=== PATIENT | female | born 1985 | race Caucasian/White ===

== ENCOUNTER 2023-02-27 11:52 | Emergency (ER) | payer MEDICAID ==
[~2023-02-27] VITALS: Ht 172.7 cm; Wt 90.0 kg
[2023-02-27 12:17] VITALS: TEMP 97.8
[2023-02-27 13:12] LABS: BASOPHILS # (AUTO) 0.1 X10'3 (0-0.2); EOSINOPHILS # (AUTO) 0.3 X10'3 (0-0.9); EOSINOPHILS % (AUTO) 4.5 % (0-6); HEMOGLOBIN 8.9 g/dl (12.0-16.0); LYMPHOCYTES # (AUTO) 2.7 X10'3 (1.1-4.8); LYMPHOCYTES % (AUTO) 38.5 % (21-51); MEAN CORPUSCULAR HEMOGLOBIN 23.8 PG (27.0-31.0); MEAN CORPUSCULAR HGB CONC 30.8 g/dL (33.0-36.5); MEAN CORPUSCULAR VOLUME 77.2 FL (78-98); MEAN PLATELET VOLUME 8.3 FL (7.4-10.4); MONOCYTES # (AUTO) 0.7 X10'3 (0-0.9); MONOCYTES % (AUTO) 9.9 % (2-12); NEUTROPHILS # (AUTO) 3.2 X10'3 (1.8-7.7); NEUTROPHILS % (AUTO) 46.1 % (42-75); PLATELET COUNT 384 X10'3 (140-440); RED BLOOD COUNT 3.76 X10'6 (4.20-5.60); RED CELL DISTRIBUTION WIDTH 24.7 % (11.5-14.5); WHITE BLOOD COUNT 6.9 X10'3 (4.5-11.0)
[2023-02-27 13:29] LABS: ALANINE AMINOTRANSFERASE 34 U/L (12-78); ALBUMIN 2.9 G/DL (3.4-5.0); ALBUMIN/GLOBULIN RATIO 0.7 (1.1-1.5); ALKALINE PHOSPHATASE 81 IU/L (46-116); AMYLASE 32 U/L (25-115); ANION GAP 8 (8-16); ASPARTATE AMINO TRANSFERASE 33 U/L (10-37); BILIRUBIN,TOTAL 0.2 MG/DL (0.1-1.0); BLOOD UREA NITROGEN 11 MG/DL (7-18); BUN/CREATININE RATIO 14.9 (10.0-20.0); CALCIUM 8.6 MG/DL (8.5-10.1); CHLORIDE 107 MMOL/L (99-107); CREATININE 0.74 MG/DL (0.40-0.90); GLUCOSE 96 MG/DL (70-104); POTASSIUM 3.5 MMOL/L (3.5-5.1); SODIUM 140 MMOL/L (135-145); TOTAL CARBON DIOXIDE 24.7 MMOL/L (24-32); TOTAL PROTEIN 6.9 G/DL (6.4-8.2); eCRCL 105 ML/MIN; eGFR 88 ML/MIN
[2023-02-27 13:42] LABS: LIPASE 24 U/L (16-77)
[2023-02-27 14:00] LABS: ANISOCYTOSIS 3+; MICROCYTOSIS 1+; PLATELET ESTIMATE NORMAL
[2023-02-27 14:01] LABS: HYPOCHROMASIA 1+
[2023-02-27 15:25] VITALS: BP 150/99
--- NOTE | 2023-02-27 16:05 | NUR ---
had to place the pt in 17 cause she was having inappropriate conversation with other pt's in the lobby
--- NOTE | 2023-02-27 16:14 | NUR ---
PT CONSISTENTLY ASKING FOR SANDWICH'S, EXPLAINED TO PT SHES HERE FOR ABD PAIN AND A DOC HASNT SEEN HER YET.
--- NOTE | 2023-02-27 16:24 | NUR ---
PT YELLING RANDOM COMMENTS FROM ROOM. ASKED TO KEEP IT DOWN AND PT SAID "NO, FUCK YOU NURSES, I NEED MY PYSCH MEDS"
[2023-02-27] MEDS ORDERED: DICY10CA88 PO ×4 (17:02→17:14)
[2023-02-27] MEDS ORDERED: ONDA8TAB13 PO ×3 (17:02→17:14)
[2023-02-27] MEDS ORDERED: ONDA4TAB12 PO (17:05)
[2023-02-27 17:28] VITALS: PULSE 87; RESP 18; O2SAT 98
[2023-02-27 17:42] LABS: BILIRUBIN,URINE NEGATIVE (Neg); CLARITY,URINE CLOUDY (Clear); COLOR,URINE YELLOW (Yellow); GLUCOSE, URINE NEGATIVE (Neg); KETONES,URINE NEGATIVE (Neg); LEUKOCYTE ESTERASE ,URINE SMALL (Neg); NITRITES, URINE NEGATIVE (Neg); OCCULT BLOOD,URINE NEGATIVE (Neg); PROTEIN,URINE NEGATIVE (Neg); URINE HCG NEGATIVE (NEG); UROBILINOGEN,URINE 0.2 E.U/dL (0.2-1.0)
[2023-02-27 18:26] LABS: UA COLLECTION TYPE CLN CATCH MIDSTREAM
[2023-02-27 18:27] LABS: BACTERIA,URINE 3+ /HPF (Neg); RBC,URINE 0-2 /HPF (0-2); SQUAMOUS EPITHELIAL CELL,UR MODERATE /LPF (FEW); TRANSITIONAL EPI CELLS,URINE FEW /HPF; WBC CLUMPS,URINE MANY /HPF (NEGATIVE)
== END 2023-02-27 17:30 | disposition home or self-care (01) ==
LOC: ER 11:54
DX: R10.9 Unspecified abdominal pain (principal)
CPT/HCPCS: 36415; 80053; 81001; 81025; 82150; 83690; 85008; 85025; 87077; 87088; 87186; 99283; J7030; A4620

== ENCOUNTER 2023-03-01 21:16 | Inpatient (IN) | payer MEDICAID ==
[~2023-03-01] VITALS: Ht 172.7 cm; Wt 61.6 kg
[~2023-03-01 21:16] MED LIST: DICY10CA88 PO; ONDA8TAB13 PO
[2023-03-01 22:32] LABS: BASOPHILS # (AUTO) 0.1 X10'3 (0-0.2); BASOPHILS % (AUTO) 1.2 % (0-1); EOSINOPHILS # (AUTO) 0.3 X10'3 (0-0.9); EOSINOPHILS % (AUTO) 5.1 % (0-6); HEMATOCRIT 27.6 % (35.0-45.0); HEMOGLOBIN 8.5 g/dl (12.0-16.0); LYMPHOCYTES % (AUTO) 45.1 % (21-51); MEAN CORPUSCULAR HEMOGLOBIN 23.9 PG (27.0-31.0); MEAN CORPUSCULAR VOLUME 77.3 FL (78-98); MEAN PLATELET VOLUME 8.5 FL (7.4-10.4); MONOCYTES # (AUTO) 0.6 X10'3 (0-0.9); MONOCYTES % (AUTO) 9.9 % (2-12); NEUTROPHILS # (AUTO) 2.6 X10'3 (1.8-7.7); NEUTROPHILS % (AUTO) 38.7 % (42-75); PLATELET COUNT 348 X10'3 (140-440); RED BLOOD COUNT 3.57 X10'6 (4.20-5.60); RED CELL DISTRIBUTION WIDTH 24.4 % (11.5-14.5); WHITE BLOOD COUNT 6.6 X10'3 (4.5-11.0)
[2023-03-01] MEDS ORDERED: oxyCODONE/APAP 5-325mg tablet PO ONE (22:40)
[2023-03-01] MEDS ORDERED: ondansetron 4mg rapidly disintigrating tab PO ONE (22:40)
[2023-03-01 22:48] LABS: ALANINE AMINOTRANSFERASE 37 U/L (12-78); ALBUMIN 2.9 G/DL (3.4-5.0); ALBUMIN/GLOBULIN RATIO 0.8 (1.1-1.5); ALKALINE PHOSPHATASE 93 IU/L (46-116); ANION GAP 6 (8-16); ASPARTATE AMINO TRANSFERASE 27 U/L (10-37); BILIRUBIN,TOTAL 0.1 MG/DL (0.1-1.0); BLOOD UREA NITROGEN 15 MG/DL (7-18); BUN/CREATININE RATIO 17.2 (10.0-20.0); CALCIUM 8.5 MG/DL (8.5-10.1); CHLORIDE 107 MMOL/L (99-107); CREATININE 0.87 MG/DL (0.40-0.90); ETHANOL 200 MG/DL (<10); GLUCOSE 103 MG/DL (70-104); POTASSIUM 3.7 MMOL/L (3.5-5.1); SODIUM 141 MMOL/L (135-145); TOTAL CARBON DIOXIDE 27.6 MMOL/L (24-32); TOTAL PROTEIN 6.7 G/DL (6.4-8.2); eCRCL 86 ML/MIN; eGFR 73 ML/MIN
[2023-03-01 23:32] LABS: URINE HCG NEGATIVE (NEG)
[2023-03-01 23:44] LABS: URINE AMPHETAMINE SCREEN POSITIVE (Neg); URINE BARBITUATE SCREEN NEGATIVE (Neg); URINE BENZODIAZEPINES SCREEN NEGATIVE (Neg); URINE CANNABINOID SCREEN POSITIVE (Neg); URINE COCAINE SCREEN NEGATIVE (Neg); URINE METHADONE SCREEN NEGATIVE (Neg); URINE OPIATE SCREEN NEGATIVE (Neg); URINE PHENCYCLIDINE SCREEN NEGATIVE (Neg)
[2023-03-01] MEDS: LORazepam 1 MG tablet PO PRN (23:50)
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
--- NOTE | 2023-03-02 00:11 | NUR ---
PACKET SENT TO [facility]
--- NOTE | 2023-03-02 00:41 | NUR ---
The patient appears to be sleeping
[2023-03-02 00:52] LABS: THYROID STIMULATING HORMONE 1.75 ulU/ml (0.34-4.50)
--- NOTE | 2023-03-02 01:12 | NUR ---
The patient appears to be sleeping
--- NOTE | 2023-03-02 03:03 | NUR ---
The patient appears to be sleeping
--- NOTE | 2023-03-02 05:02 | NUR ---
The patient appears to be sleeping
--- NOTE | 2023-03-02 06:30 | NUR ---
Pt is lying in bed, she appears to be sleeping.
[2023-03-02] MEDS ORDERED: NO HOME MEDS (06:43)
[2023-03-02 07:21] LABS: BILIRUBIN,URINE NEGATIVE (Neg); CLARITY,URINE CLOUDY (Clear); COLOR,URINE YELLOW (Yellow); GLUCOSE, URINE NEGATIVE (Neg); KETONES,URINE TRACE mg/dl (Neg); LEUKOCYTE ESTERASE ,URINE MODERATE (Neg); NITRITES, URINE POSITIVE (Neg); OCCULT BLOOD,URINE NEGATIVE (Neg); PH,URINE 6.5 (4.8-8.0); PROTEIN,URINE NEGATIVE (Neg); UROBILINOGEN,URINE 0.2 E.U/dL (0.2-1.0)
[2023-03-02 07:27] LABS: UA COLLECTION TYPE CLN CATCH MIDSTREAM
[2023-03-02 07:32] LABS: BACTERIA,URINE 4+ /HPF (Neg); RBC,URINE 0-2 /HPF (0-2); SQUAMOUS EPITHELIAL CELL,UR MANY /LPF (FEW); WBC,URINE TNTC /HPF (0-4)
[2023-03-02 07:33] LABS: CAL OXALATE CRYSTALS 2+ /HPF (NEGATIVE); MUCUS STRANDS MODERATE /LPF (Neg); WBC CLUMPS,URINE MODERATE /HPF (NEGATIVE)
--- NOTE | 2023-03-02 07:42 | NUR ---
Notified MD Dr Smith of UA results, order to repeat UA/C&S due to contaminated speciman.
--- NOTE | 2023-03-02 08:31 | NUR ---
Pt was seen in [facility] ED on 02/27/23. A urine was collected and cultured which came back + E-Coli on 03/01/23. Pt has a new order for PO ABX Bactrim BID X 7 days.
[2023-03-02] MEDS: sulfamethoxazole/trimethoprim DS (800/160mg) tablet PO SCH ×2 (08:44→20:00)
[2023-03-02] MEDS: LORazepam 1 MG tablet PO PRN ×2 (08:45→14:16)
[2023-03-02] MEDS ORDERED: ONDA8TAB13 PO ×2 (08:56→10:47)
[2023-03-02] MEDS ORDERED: ketorolac trometh inj. 60 MG/2 ML VIAL IM ONE (09:10)
[2023-03-02 09:11] LABS: ACETAMINOPHEN < 2.0 UG/ML (10-30)
--- NOTE | 2023-03-02 09:26 | NUR ---
Pt given a one time dose of Toradol 60 mg IM in right ventrogluteal for c/o 02/27 right ankle pain. No bruising or redness noted right ankle, some mild, barely notable swelling noted. Addendum: 03/02/23 at 0928 by NEENA X-ray 03/01/23 WNL.
--- NOTE | 2023-03-02 11:30 | NUR ---
Pt is lying in bed, she appears to be sleeping, respirations regular/even.
--- NOTE | 2023-03-02 12:20 | NUR ---
Pt is awake, sitting up in bed eating her lunch.
[2023-03-02] MEDS: ondansetron 4mg rapidly disintigrating tab PO PRN (12:27)
--- NOTE | 2023-03-02 14:06 | NUR ---
[facility] is at bedside evaluating the patient.
--- NOTE | 2023-03-02 14:12 | NUR ---
during pt interaction with [facility], clinician requested tech take pt vitals, upon tech asking whats wrong pt stated "it's the DTs", tech informed RN. Vital signs 143/83, HR 63, RR 16, and 100% SPO on room air.
--- NOTE | 2023-03-02 14:18 | NUR ---
Per [facility], pt is being placed on a 5150.
--- NOTE | 2023-03-02 14:32 | NUR ---
Pt ambulated to the bathroom.
--- NOTE | 2023-03-02 14:32 | NUR ---
Pt requested to watch TV.
--- NOTE | 2023-03-02 16:07 | NUR ---
Pt is lying in bed watching TV.
--- NOTE | 2023-03-02 17:06 | NUR ---
Pt has been accepted at [facility].
--- NOTE | 2023-03-02 17:24 | NUR ---
pt complained of 10/10 pain in head, back and neck, RN notified
--- NOTE | 2023-03-02 18:19 | NUR ---
[facility] is on their way down to transfer the pt upstairs.
[2023-03-02] MEDS ORDERED: mag hydrox/Alum hydrox/simeth 30ml oral suspension PO PRN (19:20)
[2023-03-02] MEDS ORDERED: loperamide 2mg capsule PO PRN (19:20)
[2023-03-02] MEDS ORDERED: acetaminophen 325mg tablet PO PRN (19:20)
[2023-03-02] MEDS ORDERED: magnesium hydroxide 30ml (MOM) UD suspension PO PRN (19:20)
[2023-03-02] MEDS ORDERED: DICY10CA88 PO (19:39)
[2023-03-02 20:00] VITALS: BP 166/114; PULSE 69; RESP 16; TEMP 97.6; O2SAT 100
[2023-03-02] MEDS ORDERED: sulfamethoxazole/trimethoprim DS (800/160mg) tablet PO SCH (20:00)
[2023-03-02 20:01] VITALS: BP 154/90
[2023-03-02] MEDS ORDERED: traZODone 150mg tablet PO PRN (20:15)
[2023-03-02] MEDS ORDERED: non-formulary drug (Ondansetron 8mg ODT*** (Ondansetron Odt) 1 TAB) PO PRN (20:30)
[2023-03-02] MEDS: dicyclomine 10 MG capsule PO SCH (21:00)
[2023-03-02 21:41] VITALS: RESP 16; O2SAT 100
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
[2023-03-02 22:01] VITALS: RESP 16; O2SAT 100
[2023-03-03 08:00] VITALS: BP_SYST 126; BP_DIAS 72; BP_DIAS 77; PULSE 64; PULSE 94; RESP 14; TEMP 99; O2SAT 97
[2023-03-03] MEDS: sulfamethoxazole/trimethoprim DS (800/160mg) tablet PO SCH ×2 (08:13→20:33)
[2023-03-03] MEDS: dicyclomine 10 MG capsule PO SCH ×3 (08:13→20:32)
[2023-03-03 09:02] LABS: CHOLESTEROL 165 MG/DL (0-200); HDL CHOLESTEROL 83 MG/DL (35-60); LDL CHOLESTEROL 65 MG/DL (50-100); TRIGLYCERIDES 87 MG/DL (20-135)
[2023-03-03 09:24] LABS: HEMOGLOBIN A1C 4.5 % (4.5-6.2)
[2023-03-03] MEDS ORDERED: LORazepam 1 MG tablet PO ONE (12:35)
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
[2023-03-03 19:30] VITALS: BP 124/78; PULSE 79; RESP 18; TEMP 98.7; O2SAT 100
[2023-03-03] MEDS: traZODone 150mg tablet PO SCH (20:32)
[2023-03-03] MEDS: quetiapine 100mg tablet PO SCH (20:33)
[2023-03-03] MEDS: thiamine 100mg tablet PO SCH (20:33)
[2023-03-03] MEDS: clonazePAM 1mg tablet PO SCH (20:34)
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
[2023-03-04 07:00] VITALS: RESP 16; O2SAT 99
[2023-03-04 08:00] VITALS: BP 98/59; PULSE 78; RESP 16; TEMP 98.3; O2SAT 99
[2023-03-04] MEDS: thiamine 100mg tablet PO SCH ×3 (08:53→20:06)
[2023-03-04] MEDS: quetiapine 100mg tablet PO SCH ×3 (08:53→20:06)
[2023-03-04] MEDS: sulfamethoxazole/trimethoprim DS (800/160mg) tablet PO SCH ×3 (08:53→20:06)
[2023-03-04] MEDS: dicyclomine 10 MG capsule PO SCH ×4 (08:53→20:06)
[2023-03-04] MEDS: clonazePAM 1mg tablet PO SCH ×4 (08:53→20:06)
[2023-03-04] MEDS: acetaminophen 325mg tablet PO PRN ×2 (11:09→19:51)
[2023-03-04 11:35] LABS: BASOPHILS % (AUTO) 0.4 % (0-1); EOSINOPHILS # (AUTO) 0.2 X10'3 (0-0.9); EOSINOPHILS % (AUTO) 3.2 % (0-6); HEMATOCRIT 33.3 % (35.0-45.0); HEMOGLOBIN 10.5 g/dl (12.0-16.0); LYMPHOCYTES # (AUTO) 2.1 X10'3 (1.1-4.8); LYMPHOCYTES % (AUTO) 29.1 % (21-51); MEAN CORPUSCULAR HEMOGLOBIN 24.2 PG (27.0-31.0); MEAN CORPUSCULAR HGB CONC 31.5 g/dL (33.0-36.5); MEAN CORPUSCULAR VOLUME 76.7 FL (78-98); MEAN PLATELET VOLUME 8.6 FL (7.4-10.4); MONOCYTES # (AUTO) 0.8 X10'3 (0-0.9); MONOCYTES % (AUTO) 11.9 % (2-12); NEUTROPHILS % (AUTO) 55.4 % (42-75); PLATELET COUNT 326 X10'3 (140-440); RED BLOOD COUNT 4.34 X10'6 (4.20-5.60); RED CELL DISTRIBUTION WIDTH 24.4 % (11.5-14.5); WHITE BLOOD COUNT 7.1 X10'3 (4.5-11.0)
[2023-03-04 11:48] LABS: % IRON SATURATION 3 % (11-46); IRON 14 UG/DL (49-151); TOTAL IRON BINDING CAPACITY 418 UG/DL (259-388)
[2023-03-04 14:00] VITALS: BP 100/67; PULSE 79; RESP 19; O2SAT 100
[2023-03-04 15:28] LABS: BILIRUBIN,URINE NEGATIVE (Neg); CLARITY,URINE CLEAR (Clear); COLOR,URINE YELLOW (Yellow); GLUCOSE, URINE NEGATIVE (Neg); KETONES,URINE NEGATIVE (Neg); LEUKOCYTE ESTERASE ,URINE NEGATIVE (Neg); NITRITES, URINE NEGATIVE (Neg); OCCULT BLOOD,URINE NEGATIVE (Neg); PROTEIN,URINE NEGATIVE (Neg); UROBILINOGEN,URINE 0.2 E.U/dL (0.2-1.0)
[2023-03-04 15:36] LABS: UA COLLECTION TYPE NON-SPECIFIED
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
[2023-03-04 19:00] VITALS: RESP 18; O2SAT 100
[2023-03-04 20:00] VITALS: BP 101/71; PULSE 90; RESP 16; TEMP 98.9; O2SAT 100
[2023-03-04] MEDS: traZODone 150mg tablet PO SCH (20:06)
[2023-03-05 07:00] VITALS: RESP 18; O2SAT 99
[2023-03-05 08:00] VITALS: BP 119/76; PULSE 75; RESP 18; TEMP 98.7; O2SAT 99
[2023-03-05] MEDS: sulfamethoxazole/trimethoprim DS (800/160mg) tablet PO SCH (08:08)
[2023-03-05] MEDS: ferrous sulfate 325mg tablet PO SCH (08:08)
[2023-03-05] MEDS: thiamine 100mg tablet PO SCH ×2 (08:08→20:08)
[2023-03-05] MEDS: quetiapine 100mg tablet PO SCH ×2 (08:08→20:07)
[2023-03-05] MEDS: clonazePAM 1mg tablet PO SCH ×3 (08:08→20:08)
[2023-03-05] MEDS: dicyclomine 10 MG capsule PO SCH ×3 (08:08→20:07)
[2023-03-05] MEDS: LIDOcaine 5% patch TP SCH (08:16)
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
[2023-03-05 19:00] VITALS: RESP 16; O2SAT 100
[2023-03-05 19:42] VITALS: BP 117/73; PULSE 100; RESP 16; TEMP 97.3; O2SAT 100
[2023-03-05] MEDS: traZODone 150mg tablet PO SCH (20:08)
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
[2023-03-06 07:00] VITALS: RESP 16; O2SAT 99
[2023-03-06] MEDS: thiamine 100mg tablet PO SCH ×2 (07:44→20:15)
[2023-03-06] MEDS: clonazePAM 1mg tablet PO SCH ×2 (07:44→20:15)
[2023-03-06] MEDS: LIDOcaine 5% patch TP SCH (07:44)
[2023-03-06] MEDS: ferrous sulfate 325mg tablet PO SCH (07:44)
[2023-03-06] MEDS: quetiapine 100mg tablet PO SCH ×2 (07:45→20:14)
[2023-03-06] MEDS: dicyclomine 10 MG capsule PO SCH ×3 (07:45→20:52)
[2023-03-06 08:00] VITALS: BP 107/66; PULSE 82; RESP 16; TEMP 97.9; O2SAT 99
[2023-03-06 09:56] LABS: HBSAG SCREEN Negative (Negative); HEP B CORE AB, IGM Negative (Negative); HEP B CORE AB, TOT Negative (Negative)
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
[2023-03-06 19:00] VITALS: RESP 18; O2SAT 99
[2023-03-06 20:00] VITALS: BP 132/76; PULSE 105; RESP 18; TEMP 98.4; O2SAT 99
[2023-03-06] MEDS: traZODone 150mg tablet PO SCH (20:14)
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
[2023-03-07 07:00] VITALS: RESP 16; O2SAT 97
[2023-03-07] MEDS: clonazePAM 1mg tablet PO SCH (07:47)
[2023-03-07] MEDS: ferrous sulfate 325mg tablet PO SCH (07:47)
[2023-03-07] MEDS: thiamine 100mg tablet PO SCH ×2 (07:47→20:27)
[2023-03-07] MEDS: dicyclomine 10 MG capsule PO SCH ×3 (07:48→20:27)
[2023-03-07] MEDS: quetiapine 100mg tablet PO SCH ×2 (07:48→20:27)
[2023-03-07] MEDS: LIDOcaine 5% patch TP SCH (07:55)
[2023-03-07 08:00] VITALS: BP 116/68; PULSE 75; RESP 16; TEMP 98.4; O2SAT 99
[2023-03-07] MEDS ORDERED: CLON0.5T4 PO (08:09)
[2023-03-07] MEDS ORDERED: DICY10CA88 PO (08:09)
[2023-03-07] MEDS ORDERED: QUET200T PO (08:09)
[2023-03-07] MEDS ORDERED: LIDO700A47 TP (08:09)
[2023-03-07] MEDS ORDERED: TRAZ150T78 PO (08:09)
[2023-03-07] MEDS ORDERED: QUET300T20 PO (08:11)
--- NOTE | 2023-03-07 09:30 | NUR ---
Initial: Pt admit for SI and HI. Currently on a regular diet and eating well, documented with 100% PO intake of all meals with the exception of 50% PO intake of three meals making average meal intake 88% since admit meeting estimated nutrient needs. Noted pt with EtOH hx, currently receiving routine Thiamine. Pt also receiving routine Ferrous sulfate with low serum MCV, Fe, and %sat. Recommend routine Vitamin C to assist with absorption of Iron as well as routine Folic acid and MVI for EtOH, d/w RN. LBM 03/06 per EMR. Will continue to follow and make recommendations as appropriate. Recommendations: 1) Continue regular diet 2) Continue routine Thiamine; add routine Folic acid and MVI d/t EtOH hx, d/w RN 03/07 3) Continue routine Fe; add Vitamin C to assist with absorption, d/w RN 03/07 4) Bowel care PRN 5) Weekly scaled weights Addendum: 03/07/23 at [address] Amended: Links added.
--- NOTE | 2023-03-07 14:38 | NUR ---
DISCHARGE PLAN-03/08/23 AT 4 AM Ree has a Grey[employer] ticket from [place] to [place]. Departs at 4:40 AM, boards 4:25 AM on 03/08/23. Meds have been delivered by [facility]. She is aware of alf resources and where to follow up in [place]. Please send her with snacks and water for the bus ride. TYLER Luis
[2023-03-07] MEDS ORDERED: predniSONE 20 mg tablet PO ONE (15:35)
[2023-03-07] MEDS ORDERED: PRED5TAB PO (16:55)
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
[2023-03-07 19:00] VITALS: RESP 16; O2SAT 97
[2023-03-07] MEDS: ondansetron 4mg rapidly disintigrating tab PO PRN (19:07)
[2023-03-07 19:30] VITALS: BP 134/80; PULSE 87; RESP 16; TEMP 97.4; O2SAT 97
[2023-03-07] MEDS ORDERED: clonazePAM 0.5mg tablet PO SCH (20:00)
[2023-03-07] MEDS: traZODone 150mg tablet PO SCH (20:27)
--- NOTE | 2023-03-08 03:20 | NUR ---
DISCHARGE Patient belongings, own medication, new Rxs, snacks, bus ticket provided. Discharge instructions reviewed, signed, understood by patient. Patient appears stable. She showered and walked off the unit with PCT. PCT witnessed patient getting into cab.
[2023-03-08] MEDS ORDERED: predniSONE 20 mg tablet PO SCH (08:30)
== END 2023-03-08 05:33 | disposition home or self-care (01) | DRG 753 ==
LOC: ER 21:17 → ED HOLD 03-02 17:45 → ADULT MH 03-02 18:47
PROVIDERS: ADMIT Psychiatry & Neurology Psychiatry; ATTEND Psychiatry & Neurology Psychiatry
DX: F31.9 Bipolar disorder, unspecified (principal); R45.851 Suicidal ideations; R45.850 Homicidal ideations; D50.9 Iron deficiency anemia, unspecified; F10.20 Alcohol dependence, uncomplicated; F12.90 Cannabis use, unspecified, uncomplicated; F39 Unspecified mood [affective] disorder; F15.10 Other stimulant abuse, uncomplicated; F17.210 Nicotine dependence, cigarettes, uncomplicated; Z20.822 Contact with and (suspected) exposure to COVID-19; F43.10 Post-traumatic stress disorder, unspecified; N39.0 Urinary tract infection, site not specified; Z79.899 Other long term (current) drug therapy; Z80.0 Family history of malignant neoplasm of digestive organs; Z86.15 Personal history of latent tuberculosis infection; K52.9 Noninfective gastroenteritis and colitis, unspecified
CPT/HCPCS: 36415; 73610; 80053; 80061; 80305; 80320; 80329; 81001; 81003; 81025; 83036; 83540; 83550; 84443; 85025; 86704; 86705; 87081; 87340; 87811; 99285; J1885; J7512